=== PATIENT | male | born 1955 | race Caucasian/White ===

== ENCOUNTER 2017-07-17 05:35 | Emergency (ER) | payer BC ==
[~2017-07-17] VITALS: Ht 177.8 cm; Wt 104.3 kg
[2017-07-17 05:50] VITALS: BP_SYST 128
--- NOTE | 2017-07-17 05:50 | NUR ---
Patient to ER bed 4 to gown for evaluation. Side rails up. Report given by KEMAL Tierney to KEMAL Sibley.
--- NOTE | 2017-07-17 05:51 | NUR ---
Patient AAOx3, ambulatory with assistance. Patient states having pain to left side of back since earlier this morning with pain scale 9/10. Patient states pain feels like "spasms" and did not get any relief after taking one dose of Soma. Patient states pain does not radiate; he states he "had the flu recently" but was feeling better. Patient denies any other complaints.
--- NOTE | 2017-07-17 05:51 | NUR ---
Note undone in EDM - 07/17/17 at 0604 by PARISH Patient AAOx3, ambulatory with assistance. Patient states having pain to left side of back since earlier this morning with pain scale 9/10. Patient states pain feels like "spasms" and did not get any remief after taking one dose of Soma. Patient states pain does not radiate; he states he "had the flu recently" but was feeling better. Patient denies any other complaints.
[2017-07-17] MEDS ORDERED: KETOROLAC TROMETHAMINE 30 MG VIAL IM ONE (06:00)
[2017-07-17] MEDS ORDERED: CYCLOBENZAPRINE HCL 10 MG TABLET (FLEXERIL) PO ONE (06:00)
--- NOTE | 2017-07-17 06:04 | NUR ---
SULEMAN Grossman at bedside examining patient.
[2017-07-17] MEDS ORDERED: methylPREDNISolone SOD SUCC/PF 62.5 MG/ML VIAL IM ONE (06:45)
[2017-07-17] MEDS ORDERED: IPRATROPIUM/ALBUTEROL SULFATE 3 ML AMPUL.NEB INH ONE (06:45)
--- NOTE | 2017-07-17 07:28 | NUR ---
Care endorsed to day shift RN.
[2017-07-17] MEDS ORDERED: LEVOFLOXACIN 500 MG TABLET ONE (08:02)
[2017-07-17] MEDS ORDERED: IPRATROPIUM BROM 0.5 MG/2.5 ML VIAL.NEB (ATROVENT) IH ONE (08:15)
[2017-07-17] MEDS ORDERED: ALBUTEROL SULFATE 0.083% 2.5 MG/3 ML VIAL.NEB IH ONE (08:15)
--- NOTE | 2017-07-17 08:21 | NUR ---
Medication was given, pt tolerated well. No adverse reaction. will continue to monitor. RT at patient bedside for breathing treatment.
[2017-07-17 08:44] LABS: BASOPHILS % (AUTO) 0.1 % (0.0-2.0); EOSINOPHILS % (AUTO) 0.1 % (0.0-4.0); HEMATOCRIT 38.3 % (36-54); HEMOGLOBIN 12.5 g/dL (14.0-18.0); LYMPHOCYTES # (AUTO) 0.7 K/uL (1.0-5.5); LYMPHOCYTES % (AUTO) 6.4 % (20.5-51.5); MEAN CORPUSCULAR HEMOGLOBIN 30 pg (27-31); MEAN CORPUSCULAR HGB CONC 33 % (32-36); MEAN CORPUSCULAR VOLUME 91 fL (79.0-98.0); MONOCYTES # (AUTO) 0.4 K/uL (0.0-1.0); MONOCYTES % (AUTO) 4.3 % (1.7-9.3); NEUTROPHILS # (AUTO) 9.3 K/uL (1.8-7.7); NEUTROPHILS % (AUTO) 89.1 % (40.0-70.0); PLATELET COUNT (AUTO) 256 K/uL (130-430); RED BLOOD CELL COUNT(AUTO) 4.23 MIL/uL (4.2-6.2); RED CELL DISTRIBUTION WIDTH 13.2 % (9.0-15.0); WHITE BLOOD COUNT (AUTO) 10.4 K/uL (4.8-10.8)
[2017-07-17 09:27] LABS: CALCIUM 9.8 mg/dL (8.4-11.0); CREATININE 1.11 mg/dL (0.55-1.30); POTASSIUM 3.7 mmol/L (3.5-5.1)
[2017-07-17 09:32] LABS: ALBUMIN 3.1 g/dL (3.4-4.8)
[2017-07-17 09:56] VITALS: BP_SYST 125
--- NOTE | 2017-07-17 09:56 | NUR ---
Patient given written and verbal discharge instructions and verbalizes understanding. ER MD discussed with patient the results and treatment provided. Patient in stable condition. ID arm band removed. Rx of Ibuprofen, Zofran, Levaquin given. Patient educated on pain management and to follow up with PMD. Pain Scale 0. Opportunity for questions provided and answered.
== END 2017-07-17 09:56 | disposition home or self-care (01) ==
LOC: SED 05:35
DX: J18.9 Pneumonia, unspecified organism (principal); M54.9 Dorsalgia, unspecified; J45.909 Unspecified asthma, uncomplicated
CPT/HCPCS: 36415; 71045; 74176; 80053; 85025; 86710; 94640; 96372; 99285; J1885; J2930